=== PATIENT | male | born 1955 | race Caucasian/White ===

== ENCOUNTER → 2017-04-23 | Day surgery (SDC) | payer BC ==
[~2017-04-23] MED LIST: *RESP: ALBUTEROL 2.5 MG/3 ML NEB (PRN) PERIprocedural Use ONLY NEB ONE; ACETAMINOPHEN 1000 MG/100 ML 100 ML IV ONE; ALBU17I; ALTA10CA10 PO; AMLO10TA2 PO; AMLO5TAB96; CHLORHEXIDINE GLUCONATE 2 % 1 PACK (2 CLOTHS) TOPICAL PRN; DEXAMETHASONE SOD PHOS 4 MG/ML VIAL IV ONE; DO NOT ADM ANY ANTICOAGULANT DRUGS PRN; GENTAMICIN SULFATE 80 MG/2 ML VIAL ONE; GLYB1TAB50; GLYCOPYRROLATE 0.2 MG/ML VIAL IV ONE; INSU1INJ14 SQ; INSULIN HUMAN REGULAR 1,000 UNITS/10 ML VIAL SQ PRN; IRBE300T44 PO; LACTATED RINGER'S 1000 ML INJ 1,000 ML IV ONE; LACTATED RINGER'S 1000 ML IV PRN; LOTE40TA; LOVA40TA PO; METOPROLOL TARTRATE 25 MG TAB PO PRN; NEOSTIGMINE 3 MG/3 ML SYR IV ONE; OMEGCAP PO; ONDANSETRON HCL 4 MG/2 ML VIAL IV PUSH ONE; PERC5TAB12 PO; PHENYLEPH/NS 1000 MCG/10 ML SYR IV ONE; POVIDONE IODINE 5% (ANTISEPSIS KIT) 4 APPLICATIONS EACH NARE PRN; PRED20; PRED20 PO; PROPOFOL 200 MG/20 ML AMP IV ONE; ROCURONIUM INJ 50 MG/5 ML SYRINGE IV PUSH ONE; ROPIVACAINE 0.5% PF INJ 30 ML VIAL NERV BLOCK ONE; SODIUM CHLORID 0.9% 500 ML IV PRN; STERILE WATER FOR INJECTION 20 ML VIAL IV ONE; ULOR40TA PO; [UNRECOGNIZED DRUG - OTHER]; ceFAZolin 1,000 MG/NS 100 ML IV SCH; ceFAZolin 3,000 MG/NS 100 ML IV SCH; ceFAZolin INJ 1,000 MG VIAL ONE; ePHEDrine/NS 25 MG/5 ML SYR IV ONE
[2017-04-23 10:41] LABS: MRSA PCR NEGATIVE (NEGATIVE); STAPH AUREUS PCR POSITIVE (NEGATIVE)
--- NOTE | 2017-04-23 11:09 | MP ---
cc: Primitivo NASCIMENTO. DATE OF SURGERY: 04/23/2017 PREOPERATIVE DIAGNOSIS: Acute complete accidental rotator cuff tear, right shoulder with acromioclavicular arthritis and possible biceps tenosynovitis. POSTOPERATIVE DIAGNOSIS: Acute tear supraspinatus, infraspinatus and partial tear upper subscapularis, right shoulder, acute. Acromioclavicular arthritis. OPERATION PREFORMED: Open repair, massive tear, rotator cuff, right shoulder with resection distal clavicle. SURGEON: Nik Nascimento MD. FRONT SERVICES AGENT: CINTIA Christianson. ANESTHESIA: Interscalene block, regional with supplemental general endotracheal by Ap Figueroa MD. INDICATIONS/FINDINGS: This 61 year-old man injured his right shoulder when he fell after jumping to avoid a piece of plywood that was falling, he was able to raise the arm before the injury but afterwards was unable to actively abduct. The physical findings showed the lack of ability to abduct or forward flex the shoulder but he could hold it in an abducted and forward flexed position if the arm was raised. A CT scan and MRI showed changes consistent with a tear of the supraspinatus, infraspinatus, partial upper portion of the subscapularis and significant osteoarthritis in the acromioclavicular joint. There was no fatty infiltration in the tendon itself and there did appear to be some fluid of recent onset. OPERATIVE FINDINGS: Showed the humeral head had no erosions, irregularities or Hill-Sachs lesion. The glenoid itself is intact. The biceps tendon had minimal erosion in the groove but certainly nothing of consequence. It appears to be very healthy. The rotator cuff had tear of the supraspinatus and infraspinatus with significant retraction, This was acute and shaped as though it were an L with a longitudinal split along the rotator interval and a small partial tear in the upper portion of the supraspinatus. The remainder of the supraspinatus appeared to be satisfactory. There was a small prominent anterior osteophyte near the acromioclavicular joint. The acromioclavicular joint had very large osteophytes in the distal clavicle especially at some of the acromion. PROCEDURE: The patient had interscalene block, regional anesthetic and subsequently an endotracheal anesthetic carried out by Dr. Figueroa. He was then placed into the supine position on the operating room table and this was adjusted to a beach chair position with a bolster on the medial aspect of the scapula along the vertebral border. The shoulder was then prepped with alcohol, Hibiclens and subsequently draped in the usual manner with the shoulder draped free and after marking the incision sites, an occlusive plastic drape. An appropriate time out procedure was carried out. An incision was made from just medial to the acromioclavicular joint along the anterior aspect of the acromion and out past the acromion about two cm's. Incision was deepened to the subcutaneous tissue to the fascial overlying the acromioclavicular joint. This was then opened and dissection was carried out anteriorly and posteriorly. The distal end of the clavicle was exposed excised with an oscillating saw and osteotome. The edges of the bone were then trimmed with a rongeur. Resection was between eight and ten mm's. Attention was then directed more laterally. The deltoid retinaculum was carefully peeled off the upper anterior portion of the acromion up to the coracoacromial ligament which was carefully attached on the undersurface of the acromion, this was reflected and preserved. The subacromial bursa was identified and was excised. The tear was then very easily visualized. The soft tissues on the upper part of the greater tuberosity, posterior aspects were cleared with a soft tissue with a rongeur. A microfracture was carried out with a small spike to ventilate and bring blood into the repair site. The sutures were then passed into the rotator cuff using ultra braid and ultra tape. After these were passed in a horizontal mattress these were then changed to Jorge-Efra or modification of Marie suture, this gave solid fixation. After these were positioned appropriately a Verdugo [employer] Nephew Multi fix anchor was affixed to the sutures. A fenestration was made in the bone and this was tapped. The anchor was then impacted into place and the sutures seated appropriately. This was then repeated more anteriorly and brought into apposition without placement of the anchor initially. The rotatory interval was identified. A transosseous suture was then passed through the lesser tuberosity into the area of the upper portion of the subscapularis. The rotator interval was then closed with a crack house suture going up to the extent of the tear and then brought back. This closed the rotator interval tightly with a waterproof repair. After this was tied the anchor for the major part of the supraspinatus was impacted into place and seated appropriately. Additional suture from the implanted material is to reapproximate some portions of the cuff that remain on the humeral head at the time of disruption. The shoulder was then carefully inspected. There was no excessive tension on the repair. The shoulder was irrigated. The #2 Ultra braid suture was then used to reattach the cortical acromial ligament and the deltoid fascia back to the acromion with transosseous suture. This was also brought into the posterior deltoid fascia to reapproximate it. The remainder of this was then closed with a combination of the ultra braid and 0 Vicryl, interrupted sutures to close the entire capsular areas and the interval in the deltoid. After this was completely closed the subcutaneous tissue is closed with 2-0 Vicryl interrupted simple sutures with buried knots. The skin was closed with continuous subcuticular closure of 4-0 Monocryl. The patient was then placed into the sling and swath and transferred to the Recovery Room in satisfactory condition having tolerated the procedure well. COUNTS: Correct. ESTIMATED BLOOD LOSS: 50 mm. MD JAZMIN Marrufo/evelia /10:09 AM /10:25 AM
--- NOTE | 2017-04-23 11:38 | RADRPT ---
EXAM DATE/TIME: 04/23/2017 11:21 [facility] COMPARISON: No previous studies available for comparison. INDICATIONS : Shortness of breath, diminished sound in right side. MEDICAL HISTORY : None. SURGICAL HISTORY : None. ENCOUNTER: initial ACUITY: 1 day PAIN SCORE: 0/10 LOCATION: Bilateral chest FINDINGS: A single view of the chest demonstrates right basilar density with elevation right hemidiaphragm. Car diomegaly. The cardiomediastinal contours are unremarkable. Osseous structures are intact. CONCLUSION: 1. Elevation right hemidiaphragm and density in right lung base likely atelectasis. 2. Cardiomegaly. 3. Left lung is clear. Jeferson Gomez MD on April 23, 2017 at 11:34 Board Certified Radiologist. This report was verified electronically.
[2017-04-23 12:01] VITALS: O2SAT 98
[2017-04-23 14:03] VITALS: O2SAT 98
[2017-04-23 16:15] VITALS: BP 141/88; PULSE 69; RESP 18; TEMP 97.4; O2SAT 95
--- NOTE | 2017-04-23 16:22 | EKG ---
Date Performed: 04/23/2017 Time Performed: 06:14:41 PTAGE: 61 years EKG: Sinus rhythm WITH OCCASIONAL VENTRICULAR PREMATURE COMPLEXES BORDERLINE ECG Since PREVIOUS TRACING , no significant change noted PREVIOUS TRACIN10/01/1999 14.18 DOCTOR: Luzma Pack Interpretating Date/Time 04/23/2017 16:21:52
== END | disposition home or self-care (01) ==
LOC: HSDC 05:13
PROVIDERS: ATTEND Orthopaedic Surgery
DX: S43.421A Sprain of right rotator cuff capsule, initial encounter (principal); M19.011 Primary osteoarthritis, right shoulder; W18.39XA Other fall on same level, initial encounter; Y93.H9 Activity, other involving exterior property and land maintenance, building and construction; I10 Essential (primary) hypertension; E78.5 Hyperlipidemia, unspecified; E11.9 Type 2 diabetes mellitus without complications; G47.30 Sleep apnea, unspecified; J45.909 Unspecified asthma, uncomplicated; N02.8 Recurrent and persistent hematuria with other morphologic changes; Z79.4 Long term (current) use of insulin; Z79.52 Long term (current) use of systemic steroids; Z79.899 Other long term (current) drug therapy
CPT/HCPCS: 01610; 23120; 23410; 71010; 82948; 87640; 87641; 93005; 94664; C1713; J0131; J0690; J1100; J1580; J2370; J2405; J2710; J2795; J3010; J7120; J7613

== ENCOUNTER 2017-07-27 15:23 | Inpatient (IN) | payer BC ==
[2017-07-27] VITALS (10 sets, daily range): BP systolic 95–123; BP diastolic 60–82; PULSE 75–120; RESP 16–20; TEMP 98.1–98.8; O2SAT 94–98
[~2017-07-27] VITALS: Ht 185.4 cm; Wt 139.4 kg
[~2017-07-27 15:23] MED LIST changes: -*RESP: ALBUTEROL 2.5 MG/3 ML NEB (PRN) PERIprocedural Use ONLY NEB ONE; -ACETAMINOPHEN 1000 MG/100 ML 100 ML IV ONE; -ALBU17I; -ALTA10CA10 PO; +ALTA10CA12 PO; -AMLO5TAB96; -CHLORHEXIDINE GLUCONATE 2 % 1 PACK (2 CLOTHS) TOPICAL PRN; -DEXAMETHASONE SOD PHOS 4 MG/ML VIAL IV ONE; -DO NOT ADM ANY ANTICOAGULANT DRUGS PRN; -GENTAMICIN SULFATE 80 MG/2 ML VIAL ONE; -GLYB1TAB50; -GLYCOPYRROLATE 0.2 MG/ML VIAL IV ONE; -INSULIN HUMAN REGULAR 1,000 UNITS/10 ML VIAL SQ PRN; -LACTATED RINGER'S 1000 ML INJ 1,000 ML IV ONE; -LACTATED RINGER'S 1000 ML IV PRN; -LOTE40TA; -METOPROLOL TARTRATE 25 MG TAB PO PRN; -NEOSTIGMINE 3 MG/3 ML SYR IV ONE; -ONDANSETRON HCL 4 MG/2 ML VIAL IV PUSH ONE; -PHENYLEPH/NS 1000 MCG/10 ML SYR IV ONE; -POVIDONE IODINE 5% (ANTISEPSIS KIT) 4 APPLICATIONS EACH NARE PRN; -PRED20; -PROPOFOL 200 MG/20 ML AMP IV ONE; -ROCURONIUM INJ 50 MG/5 ML SYRINGE IV PUSH ONE; -ROPIVACAINE 0.5% PF INJ 30 ML VIAL NERV BLOCK ONE; -SODIUM CHLORID 0.9% 500 ML IV PRN; -STERILE WATER FOR INJECTION 20 ML VIAL IV ONE; -[UNRECOGNIZED DRUG - OTHER]; -ceFAZolin 1,000 MG/NS 100 ML IV SCH; -ceFAZolin 3,000 MG/NS 100 ML IV SCH; -ceFAZolin INJ 1,000 MG VIAL ONE; -ePHEDrine/NS 25 MG/5 ML SYR IV ONE
[2017-07-27] MEDS ORDERED: SODIUM CHLORIDE 0.9% FLUSH 10 ML FLUSH IVF PRN (15:30)
[2017-07-27] MEDS ORDERED: DILTIAZEM HCL 25 MG/5 ML VIAL ONE (15:38)
[2017-07-27 15:45] LABS: AUTOMATED NEUTROPHIL # 13.8 TH/MM3 (1.8-7.7); BASOPHIL # 0.1 TH/MM3 (0-0.2); BASOPHIL % 0.5 % (0.0-2.0); EOSINOPHIL # 0.1 TH/MM3 (0-0.4); EOSINOPHIL % 0.3 % (0.0-4.0); HEMATOCRIT 42.2 % (39.0-51.0); HEMOGLOBIN 14.3 GM/DL (13.0-17.0); LYMPH % 6.6 % (9.0-44.0); MEAN CELL VOLUME 88.5 FL (80.0-100.0); MEAN PLATELET VOLUME 9.8 FL (7.0-11.0); MONO % 4.1 % (0.0-8.0); MONOCYTE # 0.6 TH/MM3 (0-0.9); NEUT % 88.5 % (16.0-70.0); PLATELET COUNT 267 TH/MM3 (150-450); RED BLOOD COUNT 4.77 MIL/MM3 (4.50-5.90); RED CELL DISTRIBUTION WIDTH 13.9 % (11.6-17.2); WHITE BLOOD COUNT 15.6 TH/MM3 (4.0-11.0)
[2017-07-27] MEDS ORDERED: DILTIAZEM HCL 25 MG/5 ML VIAL IV PUSH ONE (15:45)
[2017-07-27] MEDS ORDERED: DILTIAZEM INJ 125 MG in SODIUM CHLORIDE 0.9% INJ 100 ML IV PRN (15:45)
[2017-07-27 16:04] LABS: TROPONIN I LESS THAN 0.02 NG/ML (0.02-0.05)
[2017-07-27 16:08] LABS: BICARBONATE 26.1 MEQ/L (21.0-32.0); BLOOD UREA NITROGEN 45 MG/DL (7-18); CALCIUM 8.8 MG/DL (8.5-10.1); CHLORIDE 103 MEQ/L (98-107); CREATININE 2.75 MG/DL (0.60-1.30); GLOMERULAR FILTRATION RATE 24 ML/MIN (>89); GLUCOSE,RANDOM 351 MG/DL (74-106); MAGNESIUM 2.1 MG/DL (1.5-2.5); SODIUM (NA) 137 MEQ/L (136-145)
[2017-07-27 16:19] LABS: PROTHROMBIN TIME - PATIENT 10.3 SEC (9.8-11.6)
--- NOTE | 2017-07-27 16:21 | PD ---
HPI Chief Complaint: Cardiac Complaint Time Seen by Provider: 15:35 Travel History International Travel<30 days: No Contact w/Intl Traveler<30days: No Traveled to known affect area: No History of Present Illness HPI This is a 61-year-old male with a history of diabetes mellitus, chronic pulmonary disease, chronic kidney injury secondary to IgA nephropathy, who presents here with palpitations and positional/orthostatic dizziness. The patient is well-known to this physician and reports that he has been working long hours over the last 7 days. He reports that today when he came to work, he was noted that he was severely dizzy when he ago from stating to standing up. He states that this would acclimate however he just did not feel well. He denies any chest pain, chest pressure. He was hooked to the monitor upstairs in the specials procedure the lab and was noted to be in A. fib with RVR. The patient has no previous history of A. fib with RVR. He has been drinking a lot of caffeinated beverages. There is no history of heavy alcohol use. He does have chronic pulmonary disease and takes prednisone every other day. PFSH Past Medical History Asthma: Yes Cancer: No Cardiovascular Problems: No Diabetes: No Endocrine: No Genitourinary: Yes (IGA KIDNEY DISEASE) Hepatitis: No Hiatal Hernia: No Hypertension: Yes Immune Disorder: No Musculoskeletal: No Neurologic: No Psychiatric: No Reproductive: No Respiratory: Yes (asthma, BI PAP) Immunizations Current: Yes Thyroid Disease: No Past Surgical History Abdominal Surgery: No AICD: No Cardiac Surgery: No Ear Surgery: No Endocrine Surgery: No Eye Surgery: No Genitourinary Surgery: No Gynecologic Surgery: No Joint Replacement: No Oral Surgery: No Pacemaker: No Thoracic Surgery: No Social History Alcohol Use: No Tobacco Use: No Substance Use: No Allergies-Medications (Allergen,Severity, Reaction): Uncoded Allergies: CHLORAHEXADINE WIPES (Allergy, Severe, BURNING, REDNESS, 04/23/17) Reported Meds & Prescriptions Reported Meds & Active Scripts Active Percocet (Oxycodone-Acetaminophen) 5-325 mg Tab 1 Tab PO Q4H PRN Reported Tresiba Flextouch Pen Inj (Insulin Degludec Inj) 300 unit/3 ML Pen 30 Units SQ BID [place]-3 Fish Oil/Vitamin (Fish Oil-Cholecalciferol) 1,000-1,000 Mg Cap 300 Mg PO DAILY Amlodipine (Amlodipine Besylate) 10 Mg Tab 10 Mg PO DAILY Uloric (Febuxostat) 40 Mg Tab 1 Tab PO DAILY Prednisone 20 Mg Tab 20 Mg PO EVERY OTHER DAY 40 MG twice a day x 3 days, then 20 MG daily x 3 days, then 10 MG daily x 3 days Lovastatin 40 Mg Tab 40 Mg PO DAILY Altace (Ramipril) 10 Mg Cap 10 Mg PO DAILY Avapro (Irbesartan) 300 Mg Tab 300 Mg PO DAILY Review of Systems Except as stated in HPI: all other systems reviewed are Neg General / Constitutional: No: Fever, Chills HENT: No: Headaches, Neck Pain Cardiovascular: Positive: Palpitations, Irregular Rhythm, No: Chest Pain or Discomfort Respiratory: Positive: Shortness of Breath, No: Cough Gastrointestinal: No: Vomiting, Diarrhea Genitourinary: No: Dysuria, Decreased Urinary Output Musculoskeletal: No: Weakness, Pain Neurologic: Positive: Dizziness (orthostatic), No: Headache, Sensory Disturbance (no acute) Physical Exam Narrative GENERAL: Well-developed well-nourished male in no acute respiratory distress. SKIN: Focused skin assessment warm/dry. HEAD: Atraumatic. Normocephalic. EYES: No scleral icterus. No injection or drainage. ENT: Mucous membranes pink and moist. NECK: Trachea midline. Supple. CARDIOVASCULAR: Irregularly irregular with a heart rate in the 120s increase into the 130s. No obvious murmur appreciated. RESPIRATORY: No accessory muscle use. Clear to auscultation. Breath sounds equal bilaterally. GASTROINTESTINAL: Abdomen soft, non-tender, nondistended. MUSCULOSKELETAL: No obvious deformities. No clubbing. No cyanosis. Trace edema bilaterally NEUROLOGICAL: Awake and alert. No obvious cranial nerve deficits. Motor grossly within normal limits. Normal speech. Data Data Last Documented VS Vital Signs Date Time Temp Pulse Resp B/P (MAP) Pulse Ox O2 Delivery O2 Flow Rate FiO2 07/27/17 15:58 98 Nasal Cannula 2.00 07/27/17 15:55 72 123/69 07/27/17 15:27 98.8 18 Orders Orders Electrocardiogram (07/27/17 15:27) Basic Metabolic Panel (Bmp) (07/27/17 15:27) Ckmb (Isoenzyme) Profile (07/27/17 15:27) Complete Blood Count With Diff (07/27/17 15:27) Magnesium (Mg) (07/27/17 15:27) Prothrombin Time / Inr (Pt) (07/27/17 15:27) Act Partial Throm Time (Ptt) (07/27/17 15:27) Troponin I (07/27/17 15:27) Ecg Monitoring (07/27/17 15:27) Bilateral Bp Monitoring (07/27/17 15:27) Iv Access Insert/Monitor (07/27/17 15:27) Oximetry (07/27/17 15:27) Sodium Chloride 0.9% Flush (Ns Flush) (07/27/17 15:30) Diltiazem Inj (Cardizem Inj) (07/27/17 15:45) Diltiazem Inj (Cardizem Inj) (07/27/17 15:45) Diltiazem Inj (Cardizem Inj) (07/27/17 15:38) CKMB (07/27/17 15:30) CKMB% (07/27/17 15:30) Thyroid Stimulating Hormone (07/27/17 16:04) Chest, Single Ap (07/27/17 16:04) Admit Order (Ed Use Only) (07/27/17 16:27) Labs Laboratory Tests Test 07/27/17 15:30 White Blood Count 15.6 TH/MM3 Red Blood Count 4.77 MIL/MM3 Hemoglobin 14.3 GM/DL Hematocrit 42.2 % Mean Corpuscular Volume 88.5 FL Mean Corpuscular Hemoglobin 30.0 PG Mean Corpuscular Hemoglobin Concent 34.0 % Red Cell Distribution Width 13.9 % Platelet Count 267 TH/MM3 Mean Platelet Volume 9.8 FL Neutrophils (%) (Auto) 88.5 % Lymphocytes (%) (Auto) 6.6 % Monocytes (%) (Auto) 4.1 % Eosinophils (%) (Auto) 0.3 % Basophils (%) (Auto) 0.5 % Neutrophils # (Auto) 13.8 TH/MM3 Lymphocytes # (Auto) 1.0 TH/MM3 Monocytes # (Auto) 0.6 TH/MM3 Eosinophils # (Auto) 0.1 TH/MM3 Basophils # (Auto) 0.1 TH/MM3 CBC Comment DIFF FINAL Differential Comment Prothrombin Time 10.3 SEC Prothromb Time International Ratio 1.0 RATIO Activated Partial Thromboplast Time 25.8 SEC Blood Urea Nitrogen 45 MG/DL Creatinine 2.75 MG/DL Random Glucose 351 MG/DL Calcium Level 8.8 MG/DL Magnesium Level 2.1 MG/DL Sodium Level 137 MEQ/L Potassium Level 4.8 MEQ/L Chloride Level 103 MEQ/L Carbon Dioxide Level 26.1 MEQ/L Anion Gap 8 MEQ/L Estimat Glomerular Filtration Rate 24 ML/MIN Total Creatine Kinase 237 U/L Creatine Kinase MB 2.3 NG/ML Troponin I LESS THAN 0.02 NG/ML MDM Medical Decision Making Medical Screen Exam Complete: Yes Emergency Medical Condition: Yes Differential Diagnosis New onset A. fib versus hyperthyroidism versus metabolic arrangement Narrative Course 61-year-old male presents today with complaints of new onset A. fib. Patient has a history of chronic kidney disease secondary to IgA nephropathy, diabetes mellitus, chronic pulmonary disease. Patient is not having chest pain or chest pressure at this time. He was placed on Cardizem drip which dropped his rate from the 130s down into the 80s. He is not in congestive heart failure. He'll be admitted to the medicine service with a cardiology consult. I discussed case with both senior energy analyst, Dr. muhammad as well as the hospitalist Dr. Frost and they're agreeable with the plan. Diagnosis Primary Impression: New onset atrial fibrillation Additional Impressions: Chronic kidney disease Diabetes mellitus with hyperglycemia Chronic pulmonary disease Admitting Information Admitting Physician Requests: Admit Anatoliy Way MD Jul 27, 2017 16:21
[2017-07-27] MEDS ORDERED: INSULIN HUMAN REGULAR 1,000 UNITS/10 ML VIAL IV PUSH ONE (16:30)
[2017-07-27] MEDS ORDERED: SODIUM CHLORID 0.9% 500 ML INJ 500 ML IV ONE (16:30)
--- NOTE | 2017-07-27 16:35 | RADRPT ---
EXAM DATE/TIME: 07/27/2017 16:20 [facility] COMPARISON: CHEST SINGLE AP, April 23, 2017, 11:21. INDICATIONS : Cardiac complaint. Evaluate for atrial fibrillation. No current chest pain. MEDICAL HISTORY : None. SURGICAL HISTORY : None. ENCOUNTER: Initial ACUITY: 1 day PAIN SCORE: 0/10 LOCATION: Bilateral chest FINDINGS: A single view of the chest demonstrates the lungs to be symmetrically aerated without evidence of mas s, infiltrate or effusion. The cardiomediastinal contours are unremarkable. Osseous structures are intact. CONCLUSION: No acute disease. Alberto Bearden MD on July 27, 2017 at 16:33 Board Certified Radiologist. This report was verified electronically.
[2017-07-27] MEDS ORDERED: SENNOSIDES 8.6 MG TAB PO PRN (16:45)
[2017-07-27] MEDS ORDERED: HEPARIN SODIUM - SQ 10,000 UNITS/ML VIAL SQ SCH (16:45)
[2017-07-27] MEDS ORDERED: DEXTROSE 50% IN WATER 50 ML VIAL(D50) IV PUSH PRN (16:45)
[2017-07-27] MEDS ORDERED: GLUCAGON 1 MG/ML VIAL OTHER PRN (16:45)
[2017-07-27] MEDS ORDERED: MAGNESIUM HYDROXIDE SUSP 30 ML CUP PO PRN (16:45)
[2017-07-27] MEDS ORDERED: LACTULOSE SYRUP 20 GM/30 ML CUP PO PRN (16:45)
[2017-07-27] MEDS ORDERED: NALOXONE HCL 0.4 MG/ML AMP IV PUSH PRN (16:45)
[2017-07-27] MEDS ORDERED: BISACODYL 10 MG SUPP RECTAL PRN (16:45)
[2017-07-27] MEDS ORDERED: predniSONE 20 MG TAB PO ONE (16:45)
[2017-07-27] MEDS ORDERED: SODIUM CHLORIDE 0.9% FLUSH 10 ML FLUSH IV FLUSH PRN (16:45)
--- NOTE | 2017-07-27 17:08 | HHI.HP ---
HPI Service [facility] Hospitalists Primary Care Physician Deirdre Levy MD Admission Diagnosis new onset atrial fibrillation, chronic pulmonary disease, chronic ki Diagnoses: Chief Complaint: Lightheaded sweatiness Travel History International Travel<30 Days: No Contact w/Intl Traveler <30 Da: No Traveled to Known Affected Are: No History of Present Illness 61 years old male With history of diabetes mellitus, chronic pulmonary disease, chronic kidney disease due to IgA nephropathy presented to the ED with complaining off dizziness sweatiness and palpitation no chest pain, patient reported working excessively long hours within the last 7 days. 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 Patient denied any recent flulike syndrome, cough, headache, dysuria or any other signs of infection. Patient placed on telemetry and he was found to be in A. fib with RVR which is new for him. Patient reported excessive caffeine drinking. No history of thyroid issue or heavy alcohol use. Patient is on prednisone, fish oil, melissa and arbs for his IgA nephropathy. I saw the patient in the ED room, family were at the bedside as well as the ED physician, patient was doing okay is on O2 oxygen, feeling comfortable already, heart rate went down to 90 after patient given diltiazem. Patient has history of diabetes mellitus, he denied any history of cardiomyopathy initially his chads score still at one will need 2-D echo to assess heart capacity. No previous history of CVA Review of Systems All systems reviewed and was positive for what is mentioned in history of present illness otherwise negative Past Family Social History Past Medical History IgA nephropathy Diabetes mellitus Chronic pulmonary disease asthma Hypertension Allergies: Uncoded Allergies: CHLORAHEXADINE WIPES (Allergy, Severe, BURNING, REDNESS, 04/23/17) Family History Noncontributory Social History Occasional alcohol, no tobacco or illicit drug abuse Physical Exam Vital Signs Vital Signs Date Time Temp Pulse Resp B/P (MAP) Pulse Ox O2 Delivery O2 Flow Rate FiO2 07/27/17 16:31 78 16 95/60 (72) 97 Nasal Cannula 2.00 07/27/17 15:58 98 Nasal Cannula 2.00 07/27/17 15:58 100 Nasal Cannula 2.00 07/27/17 15:55 72 123/69 07/27/17 15:27 98.8 120 18 123/69 (87) 95 Physical Exam GENERAL: This is a well-nourished, obese, well-developed patient, in no apparent distress. SKIN: No rashes, warm and dry HEAD: Atraumatic. Normocephalic. EYES: Pupils equal round and reactive. Extraocular motions intact. No scleral icterus. ENT: Nose without bleeding, or drainage, Airway patent. NECK: Trachea midline. Supple CARDIOVASCULAR: Irregularly irregular rhythm without murmurs, gallops, or rubs. RESPIRATORY: Distant breath sounds . No wheezes, rales, or rhonchi. Appreciated GASTROINTESTINAL: Abdomen soft, non-tender, nondistended. Positive bowel sounds MUSCULOSKELETAL: Extremities without clubbing, cyanosis, or edema. Pedal pulses appreciated NEUROLOGICAL: Awake and alert. Moves all extremity. Normal speech.no focal neurological deficit Laboratory Laboratory Tests Test 07/27/17 15:30 White Blood Count 15.6 Red Blood Count 4.77 Hemoglobin 14.3 Hematocrit 42.2 Mean Corpuscular Volume 88.5 Mean Corpuscular Hemoglobin 30.0 Mean Corpuscular Hemoglobin Concent 34.0 Red Cell Distribution Width 13.9 Platelet Count 267 Mean Platelet Volume 9.8 Neutrophils (%) (Auto) 88.5 Lymphocytes (%) (Auto) 6.6 Monocytes (%) (Auto) 4.1 Eosinophils (%) (Auto) 0.3 Basophils (%) (Auto) 0.5 Neutrophils # (Auto) 13.8 Lymphocytes # (Auto) 1.0 Monocytes # (Auto) 0.6 Eosinophils # (Auto) 0.1 Basophils # (Auto) 0.1 CBC Comment DIFF FINAL Differential Comment Prothrombin Time 10.3 Prothromb Time International Ratio 1.0 Activated Partial Thromboplast Time 25.8 Blood Urea Nitrogen 45 Creatinine 2.75 Random Glucose 351 Calcium Level 8.8 Magnesium Level 2.1 Sodium Level 137 Potassium Level 4.8 Chloride Level 103 Carbon Dioxide Level 26.1 Anion Gap 8 Estimat Glomerular Filtration Rate 24 Total Creatine Kinase 237 Creatine Kinase MB 2.3 Troponin I LESS THAN 0.02 Result Diagram: 07/27/17 1530 07/27/17 1530 Imaging Last Impressions Chest X-Ray 07/27/17 1604 Signed Impressions: Service Date/Time: Thursday, July 27, 2017 16:20 - CONCLUSION: No acute disease. MD Cruz Serra VTE Risk Assessment Cruz VTE Risk Assessment: Mod/High Risk (score >= 2) Pedrorini Risk Assessment Model Point Value = 1 Point Value = 2 Point Value = 3 Point Value = 5 Age 41-60 Minor surgery BMI > 25 kg/m2 Swollen legs Varicose veins or History of unexplained or recurrent spontaneous Oral contraceptives or hormone replacement Sepsis (< 1 month) Serious lung disease, including pneumonia (< 1 month) Abnormal pulmonary function Acute myocardial infarction Congestive heart failure (< 1 month) History of inflammatory bowel disease Medical patient at bed rest Age 61-74 Arthroscopic surgery Major open surgery (> 45 min) Laparoscopic surgery (> 45 min) Malignancy Confined to bed (> 72 hours) Immobilizing plaster cast Central venous access Age >= 75 History of VTE Family history of VTE Factor V Leiden Prothrombin [id number] Lupus anticoagulant Anticardiolipin antibodies Elevated serum homocysteine Heparin-induced thrombocytopenia Other congenital or acquired thrombophilia Stroke (< 1 month) Elective arthroplasty Hip, pelvis, or leg fracture Acute spinal cord injury (< 1 month) Prophylaxis Regimen Total Risk Factor Score Risk Level Prophylaxis Regimen 0-1 Low Early ambulation 2 Moderate Order ONE of the following: *Sequential Compression Device (SCD) *Heparin 5000 units SQ BID 3-4 Higher Order ONE of the following medications: *Heparin 5000 units SQ TID *Enoxaparin/Lovenox 40 mg SQ daily (WT < 150 kg, CrCl > 30 mL/min) *Enoxaparin/Lovenox 30 mg SQ daily (WT < 150 kg, CrCl > 10-29 mL/min) *Enoxaparin/Lovenox 30 mg SQ BID (WT < 150 kg, CrCl > 30 mL/min) AND/OR *Sequential Compression Device (SCD) 5 or more Highest Order ONE of the following medications: *Heparin 5000 units SQ TID (Preferred with Epidurals) *Enoxaparin/Lovenox 40 mg SQ daily (WT < 150 kg, CrCl > 30 mL/min) *Enoxaparin/Lovenox 30 mg SQ daily (WT < 150 kg, CrCl > 10-29 mL/min) *Enoxaparin/Lovenox 30 mg SQ BID (WT < 150 kg, CrCl > 30 mL/min) AND *Sequential Compression Device (SCD) Assessment and Plan Assessment and Plan 61 years old male with history of IgA nephropathy hypertension and diabetes mellitus came with New onset A. fib with RVR Started on Cardizem which improve heart rate Bacilio score at 2 with hypertension and diabetes mellitus, no history of cardiomyopathy will need 2-D echo, will need anticoagulation heparin drip vers NOAC Consult cardiology Heparin drip Leukocytosis No significant signs of infection, could be stress reaction Chest x-ray negative, check UA History of IgA nephropathy Continue fish oil, prednisone, melissa and Arbs Hypertension, currently with hypotension due to A. fib Continue Altace and Avapro, amlodipine, with holding parameter Diabetes mellitus Continue home insulin regimen, Accu-Chek with insulin sliding scale DVT prophylaxis Will need full anticoagulation for the A. fib to discuss with cardiology Discussed Condition With Patient, ED physician Physician Certification 2 Midnight Certification Type: Admission for Inpatient Services Order for Inpatient Services The services are ordered in accordance with Medicare regulations or non- Medicare payer requirements, as applicable. In the case of services not specified as inpatient-only, they are appropriately provided as inpatient services in accordance with the 2-midnight benchmark. Estimated LOS (days): 2 days is the estimated time the patient will need to remain in the hospital, assuming treatment plan goals are met and no additional complications. Post-Hospital Plan: Home Giovanny Frost MD Jul 27, 2017 17:08
[2017-07-27] MEDS: INSULIN ASPART SUPPLEMENTAL SCALE SQ SCH ×2 (18:01→21:50)
[2017-07-27] MEDS ORDERED: DILTIAZEM HCL 30 MG TAB PO ONE (18:30)
--- NOTE | 2017-07-27 19:25 | MB ---
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 He developed fatigue on [place] and yesterday also had orthostatic dizziness. He has not had any chest pain or shortness of breath. He was diagnosed with atrial fibrillation with rapid ventricular response. This was the first episode of atrial fibrillation. He was started on diltiazem with improvement of his heart rate. He has not had any palpitations. PAST MEDICAL HISTORY Positive for CKD, IgA nephropathy, COPD/asthma, hypertension. The patient was on BiPap. There is a history of diabetes mellitus. His instructor private is Dr. Sanchez. His engineering group leader is Dr. Rooney. MEDICATIONS Include: 1. Avapro 300 milligrams a day. 2. Altace 10 milligrams a day. 3. Lovastatin 40 milligrams a day. 4. Prednisone. 5. Uloric. 6. Amlodipine 10 milligrams a day. 7. Anthony 3 fish oil. 8. Tresiba ALLERGIES Chlorhexidine wipes. SOCIAL HISTORY The patient does not smoke. He does not use alcohol. FAMILY HISTORY: Positive for heart disease, otherwise negative. PHYSICAL EXAMINATION: VITAL SIGNS: Blood pressure 95/60, pulse 101 and irregular. HEENT: Negative. Neck: 2+ carotid upstrokes, no bruits. Lungs: Clear. Heart: Irregularly irregular with no murmurs, rubs, or gallops. Abdomen: Soft, no bruits. Extremities: Without edema, 2+ distal pulses. Neurologic: Grossly nonfocal. EKG was reviewed and showed atrial fibrillation with rapid ventricular response. No acute changes. LABORATORY DATA Hemoglobin 14.3, white blood cells 15.6, platelet count 267, potassium 4.8, sodium 137, creatinine 2.75, BUN 45, estimated GFR 24, CK 227, CKMB 2.3, troponin less than 0.02. DIAGNOSIS 1. New onset atrial fibrillation with rapid ventricular response. 2. Chronic kidney disease (IgA nephropathy). 3. COPD/asthma. 4. Diabetes mellitus. 5. Hypertension. 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 We will also start short-acting p.o. diltiazem and discontinue IV diltiazem once the heart rate is controlled with p.o. medications. We will continue Avapro and Altace, but discontinue Norvasc which will eventually be replaced with long-acting diltiazem. It is unclear how long he has been in atrial fibrillation, since the exact onset is unknown, possibly over two days. We will start Pradaxa 75 milligrams twice a day, which is renal adjusted dose for his GFR between 15 and 30. He will be scheduled for cardioversion after three weeks of therapeutic anticoagulation.. I will follow him in the hospital for cardiology. I will also see him back for followup in our office after discharge. The plan was discussed with the patient and his family. MD JANELLE Jennings/HECTOR /6:30 PM /6:47 PM ESTRELLITA
[2017-07-27] MEDS ORDERED: [UNRECOGNIZED DRUG - OTHER] SQ SCH (21:00)
[2017-07-27] MEDS ORDERED: INSULIN DEGLUDEC 30 UNIT SQ SCH (21:00)
[2017-07-27] MEDS: DOCUSATE SODIUM 50 MG/SENNA 8.6 MG TAB PO SCH (21:00)
[2017-07-27] MEDS: SODIUM CHLORIDE 0.9% FLUSH 10 ML FLUSH IV FLUSH SCH (21:29)
[2017-07-27] MEDS: DABIGATRAN ETEXILATE 75 MG CAP PO SCH (21:29)
[2017-07-27 22:15] LABS: TROPONIN I LESS THAN 0.02 NG/ML (0.02-0.05)
[2017-07-27] MEDS: DILTIAZEM HCL 30 MG TAB PO SCH (23:58)
[2017-07-28] VITALS (12 sets, daily range): BP systolic 111–120; BP diastolic 64–81; PULSE 73–102; RESP 18–20; TEMP 97.7–98; O2SAT 95–96
[2017-07-28 02:29] LABS: AUTOMATED NEUTROPHIL # 11.6 TH/MM3 (1.8-7.7); BASOPHIL # 0.1 TH/MM3 (0-0.2); BASOPHIL % 0.4 % (0.0-2.0); EOSINOPHIL # 0.1 TH/MM3 (0-0.4); EOSINOPHIL % 0.6 % (0.0-4.0); HEMATOCRIT 37.4 % (39.0-51.0); HEMOGLOBIN 12.8 GM/DL (13.0-17.0); LYMPH % 9.1 % (9.0-44.0); LYMPHOCYTE # 1.2 TH/MM3 (1.0-4.8); MEAN CELL VOLUME 86.9 FL (80.0-100.0); MEAN CORPUSCULAR HEMOGLOBIN 29.8 PG (27.0-34.0); MEAN CORPUSCULAR HGB CONC 34.3 % (32.0-36.0); MEAN PLATELET VOLUME 9.6 FL (7.0-11.0); MONO % 3.7 % (0.0-8.0); MONOCYTE # 0.5 TH/MM3 (0-0.9); NEUT % 86.2 % (16.0-70.0); PLATELET COUNT 220 TH/MM3 (150-450); RED BLOOD COUNT 4.31 MIL/MM3 (4.50-5.90); RED CELL DISTRIBUTION WIDTH 13.5 % (11.6-17.2); WHITE BLOOD COUNT 13.5 TH/MM3 (4.0-11.0)
[2017-07-28 02:31] LABS: INTERNATIONAL NORMALIZED RATIO 1.1 RATIO
[2017-07-28 02:54] LABS: BICARBONATE 26.3 MEQ/L (21.0-32.0); BLOOD UREA NITROGEN 48 MG/DL (7-18); CALCIUM 8.5 MG/DL (8.5-10.1); CHLORIDE 106 MEQ/L (98-107); CREATININE 2.15 MG/DL (0.60-1.30); GLOMERULAR FILTRATION RATE 31 ML/MIN (>89); GLUCOSE,RANDOM 249 MG/DL (74-106); SODIUM (NA) 138 MEQ/L (136-145); TROPONIN I LESS THAN 0.02 NG/ML (0.02-0.05)
[2017-07-28] MEDS: DILTIAZEM HCL 30 MG TAB PO SCH (06:14)
[2017-07-28] MEDS: DOCUSATE SODIUM 50 MG/SENNA 8.6 MG TAB PO SCH (07:50)
[2017-07-28] MEDS: DABIGATRAN ETEXILATE 75 MG CAP PO SCH (08:19)
[2017-07-28] MEDS: INSULIN ASPART SUPPLEMENTAL SCALE SQ SCH (08:20)
[2017-07-28] MEDS: SODIUM CHLORIDE 0.9% FLUSH 10 ML FLUSH IV FLUSH SCH (08:21)
[2017-07-28] MEDS ORDERED: LOSARTAN 50 MG TAB PO SCH (09:00)
[2017-07-28] MEDS ORDERED: FEBUXOSTAT PO SCH (09:00)
[2017-07-28] MEDS ORDERED: FEBUXOSTAT 40 MG PO SCH (09:00)
[2017-07-28] MEDS ORDERED: FISH OIL PO SCH (09:00)
[2017-07-28] MEDS ORDERED: RAMIPRIL 5 MG CAP PO SCH (09:00)
[2017-07-28] MEDS ORDERED: IRBESARTAN 300 MG PO SCH (09:00)
[2017-07-28] MEDS ORDERED: PRAVASTATIN SOD 40 MG TAB PO SCH (09:00)
[2017-07-28] MEDS ORDERED: CHOLECALCIFEROL PO SCH (09:00)
--- NOTE | 2017-07-28 09:21 | PD.CARD.PN ---
Subjective Subjective Remarks No CP or SOB, HR better controlled Objective Medications Current Medications Medications (Trade) Dose Ordered Sig/Lance Route Start Time Stop Time Status Last Admin Diltiazem HCl 125 mg/Sodium Chloride 125 ml @ 5 mls/hr TITRATE PRN IV 07/27/17 15:45 07/27/17 15:55 (NS Flush) 2 ml UNSCH PRN IV FLUSH 07/27/17 16:45 (NS Flush) 2 ml BID IV FLUSH 07/27/17 21:00 07/28/17 08:21 (Narcan Inj) 0.4 mg UNSCH PRN IV PUSH 07/27/17 16:45 (Lexy-Colace) 1 tab BID PO 07/27/17 21:00 (Milk Of Magnesia Liq) 30 ml Q12H PRN PO 07/27/17 16:45 (Senokot) 17.2 mg Q12H PRN PO 07/27/17 16:45 (Dulcolax Supp) 10 mg DAILY PRN RECTAL 07/27/17 16:45 (Lactulose Liq) 30 ml DAILY PRN PO 07/27/17 16:45 (Pravachol) 40 mg DAILY PO 07/28/17 09:00 07/28/17 08:18 (Deltasone) 20 mg EVERY OTHER DAY PO 07/29/17 09:00 (Altace) 10 mg DAILY PO 07/28/17 09:00 07/28/17 08:19 (D50w (Vial) Inj) 50 ml UNSCH PRN IV PUSH 07/27/17 16:45 (Glucagon Inj) 1 mg UNSCH PRN OTHER 07/27/17 16:45 (NovoLOG SUPPLEMENTAL SCALE) 1 ACHS SLIDING SCALE SQ 07/27/17 17:00 07/28/17 08:20 (Cardizem) 30 mg Q6HR PO 07/28/17 00:00 07/28/17 06:14 (Pradaxa) 75 mg BID PO 07/27/17 21:00 07/28/17 08:19 (Cozaar) 100 mg DAILY PO 07/28/17 09:00 07/28/17 08:18 Patient Own Medication PT OWN MED: ULORIC... DAILY PO 07/28/17 09:00 Future Hold Patient Own Medication PT OWN MED: MADDIE... BID SQ 07/27/17 21:00 Future Hold (Cardizem Cd) 180 mg DAILY PO 07/28/17 09:15 UNV Vital Signs / I&O Vital Signs Date Time Temp Pulse Resp B/P (MAP) Pulse Ox O2 Delivery O2 Flow Rate FiO2 07/28/17 09:12 98 07/28/17 08:30 95 Room Air 07/28/17 08:30 95 07/28/17 08:30 98.0 73 18 120/81 (94) 95 07/28/17 06:00 92 07/28/17 05:00 102 07/28/17 04:00 90 07/28/17 03:00 82 07/28/17 03:00 96 Room Air 07/28/17 03:00 97.7 78 20 115/75 (88) 96 07/28/17 02:00 88 07/28/17 01:17 95 21 07/28/17 01:00 86 07/28/17 00:00 90 07/27/17 23:00 96 07/27/17 23:00 98.2 86 20 111/82 (92) 94 07/27/17 23:00 94 Room Air 07/27/17 22:00 94 07/27/17 21:27 98 21 07/27/17 21:00 100 07/27/17 20:00 98 21 07/27/17 20:00 108 07/27/17 19:00 98.1 75 20 106/80 (89) 97 07/27/17 19:00 97 Nasal Cannula 2.00 07/27/17 19:00 96 07/27/17 17:00 98 Nasal Cannula 2.00 07/27/17 16:31 78 16 95/60 (72) 97 Nasal Cannula 2.00 07/27/17 15:58 98 Nasal Cannula 2.00 07/27/17 15:58 100 Nasal Cannula 2.00 07/27/17 15:55 72 123/69 07/27/17 15:27 98.8 120 18 123/69 (87) 95 I/O 07/27/17 07/27/17 07/27/17 07/28/17 07/28/17 07/28/17 07:00 15:00 23:00 07:00 15:00 23:00 Intake Total 790 ml Balance 790 ml Intake Oral 700 ml IV Total 90 ml # Voids 4 Physical Exam GENERAL: In NAD SKIN: Warm and dry. HEAD: Normocephalic. EYES: No scleral icterus. No injection or drainage. NECK: Supple, trachea midline. No JVD or lymphadenopathy. CARDIOVASCULAR: Irregular rate, without murmurs, gallops, or rubs. RESPIRATORY: Breath sounds equal bilaterally. No accessory muscle use. GASTROINTESTINAL: Abdomen soft, non-tender, nondistended. MUSCULOSKELETAL: No cyanosis, or edema. Laboratory Laboratory Tests Test 07/27/17 15:30 07/27/17 20:40 07/28/17 01:55 White Blood Count 15.6 TH/MM3 13.5 TH/MM3 Red Blood Count 4.77 MIL/MM3 4.31 MIL/MM3 Hemoglobin 14.3 GM/DL 12.8 GM/DL Hematocrit 42.2 % 37.4 % Mean Corpuscular Volume 88.5 FL 86.9 FL Mean Corpuscular Hemoglobin 30.0 PG 29.8 PG Mean Corpuscular Hemoglobin Concent 34.0 % 34.3 % Red Cell Distribution Width 13.9 % 13.5 % Platelet Count 267 TH/MM3 220 TH/MM3 Mean Platelet Volume 9.8 FL 9.6 FL Neutrophils (%) (Auto) 88.5 % 86.2 % Lymphocytes (%) (Auto) 6.6 % 9.1 % Monocytes (%) (Auto) 4.1 % 3.7 % Eosinophils (%) (Auto) 0.3 % 0.6 % Basophils (%) (Auto) 0.5 % 0.4 % Neutrophils # (Auto) 13.8 TH/MM3 11.6 TH/MM3 Lymphocytes # (Auto) 1.0 TH/MM3 1.2 TH/MM3 Monocytes # (Auto) 0.6 TH/MM3 0.5 TH/MM3 Eosinophils # (Auto) 0.1 TH/MM3 0.1 TH/MM3 Basophils # (Auto) 0.1 TH/MM3 0.1 TH/MM3 CBC Comment DIFF FINAL DIFF FINAL Differential Comment Prothrombin Time 10.3 SEC 11.0 SEC Prothromb Time International Ratio 1.0 RATIO 1.1 RATIO Activated Partial Thromboplast Time 25.8 SEC Blood Urea Nitrogen 45 MG/DL 48 MG/DL Creatinine 2.75 MG/DL 2.15 MG/DL Random Glucose 351 MG/DL 249 MG/DL Calcium Level 8.8 MG/DL 8.5 MG/DL Magnesium Level 2.1 MG/DL Sodium Level 137 MEQ/L 138 MEQ/L Potassium Level 4.8 MEQ/L 4.3 MEQ/L Chloride Level 103 MEQ/L 106 MEQ/L Carbon Dioxide Level 26.1 MEQ/L 26.3 MEQ/L Anion Gap 8 MEQ/L 6 MEQ/L Estimat Glomerular Filtration Rate 24 ML/MIN 31 ML/MIN Total Creatine Kinase 237 U/L 199 U/L 157 U/L Creatine Kinase MB 2.3 NG/ML Troponin I LESS THAN 0.02 NG/ML LESS THAN 0.02 NG/ML LESS THAN 0.02 NG/ML Thyroid Stimulating Hormone 3rd Gen 0.655 uIU/ML Imaging Last 24 hours Impressions Chest X-Ray 07/27/17 1604 Signed Impressions: Service Date/Time: Thursday, July 27, 2017 16:20 - CONCLUSION: No acute disease. Alberto Bearden MD Assessment and Plan Problem List: (1) New onset atrial fibrillation ICD Codes: I48.91 - Unspecified atrial fibrillation Status: Acute (2) Chronic kidney disease ICD Codes: N18.9 - Chronic kidney disease, unspecified Status: Acute (3) Chronic pulmonary disease ICD Codes: J98.4 - Other disorders of lung Status: Acute (4) Diabetes mellitus with hyperglycemia ICD Codes: E11.65 - Type 2 diabetes mellitus with hyperglycemia Status: Acute (5) IgA nephropathy ICD Codes: N02.8 - Recurrent and persistent hematuria with other morphologic changes Status: Acute Assessment and Plan Switch to long-acting diltiazem. Continue anticoag w Pradaxa. DC home later today if stable. Will schedule f/u in our office in 2 weeks. Cardioversion after 3 weeks of anticoagulation if necessary. Stefano León MD Jul 28, 2017 09:21
[2017-07-28] MEDS ORDERED: DILTIAZEM-CD 180 MG CAP ER PO SCH (09:30)
--- NOTE | 2017-07-28 11:14 | HHI.PR ---
Subjective Remarks Follow-up Fouzia martin with RVR 07/28/17-patient seen and examined him a currently denies any chest pain or shortness of breath. Also denies any heart palpitation. Rates control however increases above 110 with activity. Case discussed with cardiology Objective Vitals Vital Signs Date Time Temp Pulse Resp B/P (MAP) Pulse Ox O2 Delivery O2 Flow Rate FiO2 07/28/17 10:21 89 07/28/17 09:12 98 07/28/17 08:30 95 Room Air 07/28/17 08:30 95 07/28/17 08:30 98.0 73 18 120/81 (94) 95 07/28/17 06:00 92 07/28/17 05:00 102 07/28/17 04:00 90 07/28/17 03:00 82 07/28/17 03:00 96 Room Air 07/28/17 03:00 97.7 78 20 115/75 (88) 96 07/28/17 02:00 88 07/28/17 01:17 95 21 07/28/17 01:00 86 07/28/17 00:00 90 07/27/17 23:00 96 07/27/17 23:00 98.2 86 20 111/82 (92) 94 07/27/17 23:00 94 Room Air 07/27/17 22:00 94 07/27/17 21:27 98 21 07/27/17 21:00 100 07/27/17 20:00 98 21 07/27/17 20:00 108 07/27/17 19:00 98.1 75 20 106/80 (89) 97 07/27/17 19:00 97 Nasal Cannula 2.00 07/27/17 19:00 96 07/27/17 17:00 98 Nasal Cannula 2.00 07/27/17 16:31 78 16 95/60 (72) 97 Nasal Cannula 2.00 07/27/17 15:58 98 Nasal Cannula 2.00 07/27/17 15:58 100 Nasal Cannula 2.00 07/27/17 15:55 72 123/69 07/27/17 15:27 98.8 120 18 123/69 (87) 95 I/O 07/27/17 07/27/17 07/27/17 07/28/17 07/28/17 07/28/17 07:00 15:00 23:00 07:00 15:00 23:00 Intake Total 790 ml 12.5 ml Balance 790 ml 12.5 ml Intake Oral 700 ml IV Total 90 ml 12.5 ml # Voids 4 Result Diagram: 07/28/17 0155 07/28/17 0155 Imaging Last Impressions Chest X-Ray 07/27/17 1604 Signed Impressions: Service Date/Time: Thursday, July 27, 2017 16:20 - CONCLUSION: No acute disease. Alberto Bearden MD Objective Remarks GENERAL: NAD SKIN: Warm and dry. HEAD: Normocephalic. EYES: No scleral icterus. No injection or drainage. NECK: Supple, trachea midline. No JVD or lymphadenopathy. CARDIOVASCULAR: irreg Regular rate and rhythm without murmurs, gallops, or rubs. RESPIRATORY: Breath sounds equal bilaterally. No accessory muscle use. GASTROINTESTINAL: Abdomen soft, non-tender, nondistended. MUSCULOSKELETAL: No cyanosis, or edema. BACK: Nontender without obvious deformity. No CVA tenderness. Procedures none A/P Problem List: (1) New onset atrial fibrillation ICD Code: I48.91 - Unspecified atrial fibrillation Status: Acute (2) Diabetes mellitus with hyperglycemia ICD Code: E11.65 - Type 2 diabetes mellitus with hyperglycemia Status: Acute (3) IgA nephropathy ICD Code: N02.8 - Recurrent and persistent hematuria with other morphologic changes Status: Acute (4) Chronic kidney disease ICD Code: N18.9 - Chronic kidney disease, unspecified Status: Acute Assessment and Plan 61-year-old man with New onset A. fib with RVR s/p Cardizem drip Currently on Cardizem 180 mg by mouth daily, Pradaxa 75 mg twice a day Case discussed with cardiology Dr. León, plan for cardioversion in 2-3 weeks outpatient Leukocytosis Likely secondary to chronic steroid use versus stress reaction No significant signs of infection Chest x-ray negative, History of IgA nephropathy Continue fish oil, prednisone, melissa and Arbs Hypertension, Continue Altace and Avapro with holding parameter Diabetes mellitus Continue home insulin regimen, Accu-Chek with insulin sliding scale DVT prophylaxis Pradaxa Patient's condition tremendously improved, will be discharged home and follow- up with cardiology as well as PCP Discharge Planning Discharge patient to home Condition on discharge: Improved ADA Diet as tolerated Ad Fara activity Rx written: See EMR Follow-up with primary care physician in one week Follow-up with cardiology per protocol Jeferson Nina MD Jul 28, 2017 11:14
[2017-07-28] MEDS ORDERED: PRAD75CA PO (11:20)
[2017-07-28] MEDS ORDERED: CARD180C5 PO (11:20)
--- NOTE | 2017-07-28 15:08 | EKG ---
Date Performed: 07/27/2017 Time Performed: 15:30:41 PTAGE: 61 years EKG: ATRIAL FIBRILLATION WITH RAPID VENTRICULAR RESPONSE ABNORMAL RHYTHM ECG PREVIOUS TRACING : 04/23/2017 06.14 DOCTOR: Santana Mesa Interpretating Date/Time 07/28/2017 15:07:59
[2017-07-29] MEDS ORDERED: predniSONE 20 MG TAB PO SCH (09:00)
== END 2017-07-28 11:58 | disposition home or self-care (01) | DRG 309 ==
LOC: NEPE 15:23 → NEDA 16:29 → HCPC 17:18
PROVIDERS: ADMIT Hospitalist; ATTEND Hospitalist
DX: I48.91 Unspecified atrial fibrillation (principal); Z68.41 Body mass index [BMI] 40.0-44.9, adult; E11.65 Type 2 diabetes mellitus with hyperglycemia; I95.9 Hypotension, unspecified; I10 Essential (primary) hypertension; N18.9 Chronic kidney disease, unspecified; D72.829 Elevated white blood cell count, unspecified; E66.9 Obesity, unspecified; J44.9 Chronic obstructive pulmonary disease, unspecified; Z79.4 Long term (current) use of insulin
CPT/HCPCS: 71010; 80048; 82550; 82552; 82948; 83735; 84443; 84484; 85025; 85610; 85730; 93005; 94002; 94003; 96365; 96375; J1815; J7040; J7512

== ENCOUNTER 2017-08-18 11:16 | Day surgery (SDC) | payer BC ==
[~2017-08-18 11:16] MED LIST changes: -AMLO10TA2 PO; +CARD180C5 PO; +PRAD75CA PO
[2017-08-18] MEDS ORDERED: LACTATED RINGER'S 1000 ML IV PRN (12:00)
[2017-08-18] MEDS ORDERED: METOPROLOL TARTRATE 25 MG TAB PO PRN (12:00)
[2017-08-18] MEDS ORDERED: SODIUM CHLORID 0.9% 500 ML IV PRN (12:00)
[2017-08-18] MEDS ORDERED: AMLO10TA2 PO (12:18)
[2017-08-18] MEDS ORDERED: PROPOFOL 200 MG/20 ML AMP ONE ×2 (13:21→13:38)
--- NOTE | 2017-08-19 09:13 | MR ---
cc: BRONWYN WOODWARD DATE 08/19/2017 INDICATIONS Atrial fibrillation PROCEDURE PERFORMED DC cardioversion PROCEDURE NOTE After the patient was sedated by anesthesia, transesophageal echocardiogram was performed and revealed no evidence of left atrial thrombus. DC cardioversion was then performed using 200 joule biphasic shock. The patient converted to sinus rhythm and remained stable. He was discharged home in stable condition. DIAGNOSIS Successful cardioversion of atrial fibrillation. DISPOSITION Dr. Gaston will continue his current medical program including anticoagulation with Pradaxa. I will see him back for followup in our office after discharge. MD JANELLE Jennings/OMARI /2:08 PM /9:05 AM MTDD
--- NOTE | 2017-08-19 22:53 | EKG ---
Date Performed: 08/18/2017 Time Performed: 13:52:52 PTAGE: 61 years EKG: Sinus rhythm with PAC(s). Borderline ECG PREVIOUS TRACING : 08/18/2017 12.54 Compared to previous tracing afib is no longer present DOCTOR: Fredi Webster Interpretating Date/Time 08/19/2017 22:53:20
--- NOTE | 2017-08-19 22:58 | EKG ---
Date Performed: 08/18/2017 Time Performed: 12:54:10 PTAGE: 61 years EKG: Atrial fibrillation with rapid ventricular response. Abnormal ECG PREVIOUS TRACING : 07/27/2017 15.30 Since previous tracing, no significant change noted DOCTOR: Fredi Webster Interpretating Date/Time 08/19/2017 22:58:07
--- NOTE | 2017-08-20 09:26 | CF ---
cc: BRONWYN WOODWARD DATE OF SERVICE 08/18/2017 PROCEDURE PERFORMED Transesophageal echocardiogram INDICATIONS Atrial fibrillation, evaluation for left atrial thrombus prior to cardioversion. PROCEDURE After the patient was sedated by anesthesia, a transesophageal probe was placed without difficulty. Tomographic images were obtained. Left ventricular function was preserved. The left atrial appendage was visualized and there was no evidence of left atrial thrombus. Mitral valve was structurally normal. There was no evidence of mitral stenosis. There was evidence of trace mitral regurgitation. The aortic valve was mildly thickened. There was no evidence of aortic stenosis. There was evidence of trace aortic insufficiency. There was evidence of trace tricuspid regurgitation. Bubble study was performed and there was no evidence of right to left shunt. Descending thoracic aorta had minimal plaque. DIAGNOSIS 1. No evidence of left atrial thrombus. 2. Preserved left ventricular systolic function. 3. Mild aortic sclerosis. 4. Trace aortic insufficiency. 5. Trace mitral regurgitation. 6. Trace tricuspid regurgitation. 7. No evidence of patent foramen ovale. MD JANELLE Jennings/OMARI /5:32 PM /9:14 AM ESTRELLITA
== END 2017-08-18 14:38 | disposition home or self-care (01) ==
LOC: HDOC 11:16 → HDIC 11:17 → HDOC 14:38
PROVIDERS: ATTEND Internal Medicine Interventional Cardiology
DX: I48.91 Unspecified atrial fibrillation (principal)
CPT/HCPCS: 92960; 93005; 93312; 93320; 93325

== ENCOUNTER 2018-01-08 14:48 | Emergency (ER) | payer BC ==
[~2018-01-08] VITALS: Ht 180.3 cm; Wt 134.0 kg
[~2018-01-08 14:48] MED LIST changes: +AMLO10TA2 PO; -PERC5TAB12 PO
[2018-01-08 14:50] VITALS: BP 124/87; PULSE 84; RESP 18; TEMP 98; O2SAT 95
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
[2018-01-08] MEDS ORDERED: TETANUS/DIPHTHERIA TOXOID ADULT 0.5 ML VIAL IM ONE (15:00)
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
--- NOTE | 2018-01-08 16:30 | RADRPT ---
EXAM DATE: 01/08/2018 4:25 PM EDT AGE/SEX: 62 years / Male INDICATIONS: Pain. CLINICAL DATA: This is the patient's initial encounter. Patient reports that signs and symptoms have been present for 1 day and indicates a pain score of 8/10. MEDICAL/SURGICAL HISTORY: None. None. COMPARISON: No prior exams available for comparison. FINDINGS: 4 images of the right shoulder were performed. There is normal alignment of the glenohumeral joint. N o fracture seen. There is a prominent bony excrescence arising from the distal clavicle at the AC ami nt. The visualized right upper ribs are intact. CONCLUSION: No evidence of recent bony injury. Electronically signed by: Popeye Kraft MD 01/08/2018 4:28 PM EDT
[2018-01-08 16:50] VITALS: BP 104/62
== END 2018-01-08 16:56 | disposition home or self-care (01) ==
LOC: NEPE 14:48
DX: S09.90XA Unspecified injury of head, initial encounter (principal); S62.292A Other fracture of first metacarpal bone, left hand, initial encounter for closed fracture; M25.551 Pain in right hip; V17.0XXA Pedal cycle driver injured in collision with fixed or stationary object in nontraffic accident, initial encounter; Y93.55 Activity, bike riding; I48.91 Unspecified atrial fibrillation; E11.9 Type 2 diabetes mellitus without complications; I10 Essential (primary) hypertension; G47.30 Sleep apnea, unspecified; Z79.4 Long term (current) use of insulin; Z79.01 Long term (current) use of anticoagulants; Z87.448 Personal history of other diseases of urinary system; Z87.09 Personal history of other diseases of the respiratory system
CPT/HCPCS: 70450; 72192; 73030; 73110; 73130; 73502; 99284; L3808